=== PATIENT | female | born 1960 | race Caucasian/White ===

== ENCOUNTER 2017-12-30 18:47 | Emergency (ER) | payer OTHER ==
[~2017-12-30] VITALS: Ht 157.5 cm; Wt 118.8 kg
[~2017-12-30 18:47] MED LIST: ADV250/50; DEPAKOTE500 MG PO; HCTZ/LISINOPRIL1 TA1 PO; INVEGA9 MG PO; LOPRESSOR50 MG PO; METFORMIN ER500 M1 PO
[2017-12-30 18:53] VITALS: Ht 157.5 cm; Wt 118.8 kg
[2017-12-30 22:48] VITALS: BP 148/97
== END 2017-12-30 23:24 | disposition home or self-care (01) ==
LOC: ED 18:47
DX: J02.9 Acute pharyngitis, unspecified (principal); J98.01 Acute bronchospasm; I10 Essential (primary) hypertension; E11.9 Type 2 diabetes mellitus without complications; F31.9 Bipolar disorder, unspecified; E78.00 Pure hypercholesterolemia, unspecified; E66.01 Morbid (severe) obesity due to excess calories; K21.9 Gastro-esophageal reflux disease without esophagitis; M19.90 Unspecified osteoarthritis, unspecified site; Z88.0 Allergy status to penicillin; Z88.2 Allergy status to sulfonamides; Z88.8 Allergy status to other drugs, medicaments and biological substances
CPT/HCPCS: 82962; 87804; J2930; J7613; J7644

== ENCOUNTER 2018-04-04 08:17 | Emergency (ER) | payer OTHER ==
[~2018-04-04] VITALS: Ht 165.1 cm; Wt 116.1 kg
[2018-04-04 08:24] VITALS: Ht 165.1 cm; Wt 116.1 kg
[2018-04-04 08:54] VITALS: BP 157/92
== END 2018-04-04 08:54 | disposition home or self-care (01) ==
LOC: ED 08:17
DX: K59.00 Constipation, unspecified (principal); E11.9 Type 2 diabetes mellitus without complications; J45.909 Unspecified asthma, uncomplicated; I10 Essential (primary) hypertension; K21.9 Gastro-esophageal reflux disease without esophagitis; Z90.710 Acquired absence of both cervix and uterus; Z88.0 Allergy status to penicillin; Z88.2 Allergy status to sulfonamides; Z88.8 Allergy status to other drugs, medicaments and biological substances

== ENCOUNTER 2018-08-12 14:34 | Inpatient (IN) | payer OTHER ==
[~2018-08-12] VITALS: Ht 157.5 cm; Wt 117.0 kg
[~2018-08-12 14:34] MED LIST changes: +LOPRESSOR50 M1 PO; -LOPRESSOR50 MG PO
[2018-08-12 14:56] VITALS: Ht 157.5 cm; Wt 117.0 kg
[2018-08-12 15:28] LABS: BASOPHIL % 0.1 % (0-2); PLATELET COUNT 246 x10^3mcL (130-400)
[2018-08-12 15:34] LABS: RED CELL DISTRIBUTION WIDTH 15.3 % (11.5-14.5)
[2018-08-12 15:36] LABS: CALCIUM 8.4 mg/dL (8.5-10.1); CHLORIDE SERUM 107 mmol/L (98-107); GFR1 > 60 mL/min; GLUCOSE SERUM 122 mg/dL (74-106); POTASSIUM SERUM 3.8 mmol/L (3.5-5.1); SODIUM SERUM 141 mmol/L (136-145)
[2018-08-12 15:52] LABS: ALKALINE PHOSPHATASE 63 U/L (46-116); ALT/SGPT 12 U/L (14-59); AST/SGOT 10 U/L (15-37); BILIRUBIN TOTAL 0.34 mg/dL (0.20-1.00); CHOLESTEROL 139 mg/dL (<200); HDL CHOLESTEROL 50 mg/dL (40-60); TOTAL PROTEIN, SERUM 7.2 g/dL (6.4-8.2)
[2018-08-12 16:03] LABS: ALBUMIN 2.8 g/dL (3.4-5.0)
[2018-08-12 16:58] LABS: MAGNESIUM 1.9 mg/dL (1.8-2.4); PHOSPHOROUS 4.2 mg/dL (2.5-4.9)
[2018-08-12 17:05] LABS: T3 TOTAL 1.13 ng/mL
[2018-08-12 17:18] LABS: FREE T4 0.99 ng/dL (0.76-1.46); FREE THYROXINE INDEX 2.8 ug/dL (1.4-4.5); T4(THYROXINE) 8.5 ug/dL (4.7-13.3)
[2018-08-12 17:31] VITALS: BP 160/90
[2018-08-12 18:02] VITALS: BP 160/90
[2018-08-12 18:45] VITALS: BP 147/91
[2018-08-12 20:35] VITALS: BP 138/72
[2018-08-13 05:26] VITALS: BP 152/78
[2018-08-13 06:27] LABS: UA SPECIFIC GRAVITY 1.025 (1.005-1.035); microscopic required? YES; urine erythrocyte NEGATIVE (NEGATIVE)
[2018-08-13 06:47] LABS: PLATELET COUNT 228 x10^3mcL (130-400)
[2018-08-13 07:14] LABS: CALCIUM 8.1 mg/dL (8.5-10.1); CARBON DIOXIDE 30.9 mmol/L (21-32); CHLORIDE SERUM 109 mmol/L (98-107); CREATININE SERUM 0.8 mg/dL (0.6-1.0); GFR1 > 60 mL/min; GLUCOSE SERUM 170 mg/dL (74-106); MAGNESIUM 2.1 mg/dL (1.8-2.4); PHOSPHOROUS 3.7 mg/dL (2.5-4.9); RED CELL DISTRIBUTION WIDTH 15.8 % (11.5-14.5); SODIUM SERUM 143 mmol/L (136-145)
[2018-08-13 08:27] VITALS: BP 166/84
[2018-08-13 09:18] LABS: AMPHETAMINE QUAL UR NONE DETECTED (See below)
[2018-08-13 11:26] VITALS: BP 152/70
[2018-08-13 13:37] LABS: BAND NEUTROPHIL 7 % (0-10); BASOPHIL 0 % (0-2); MONOCYTE 8 % (0-7); SEGMENTED NEUTROPHILS 85 % (37-75); rbc morphology (normal/abnorm) ABNORMAL (NORMAL)
[2018-08-13 13:38] LABS: PLATELET MORPHOLOGY PLATELETS DECREASED
[2018-08-13 16:19] VITALS: BP 141/68
[2018-08-13 20:17] VITALS: BP 150/74
[2018-08-14 05:21] VITALS: BP 129/56
[2018-08-14 05:52] LABS: PLATELET COUNT 242 x10^3mcL (130-400)
[2018-08-14 06:15] LABS: CALCIUM 8.3 mg/dL (8.5-10.1); CARBON DIOXIDE 30.8 mmol/L (21-32); CHLORIDE SERUM 107 mmol/L (98-107); CREATININE SERUM 0.8 mg/dL (0.6-1.0); GFR1 > 60 mL/min; GLUCOSE SERUM 169 mg/dL (74-106); MAGNESIUM 2.1 mg/dL (1.8-2.4); PHOSPHOROUS 4.1 mg/dL (2.5-4.9); POTASSIUM SERUM 4.5 mmol/L (3.5-5.1); SODIUM SERUM 144 mmol/L (136-145)
[2018-08-14 06:32] LABS: RED CELL DISTRIBUTION WIDTH 15.5 % (11.5-14.5)
[2018-08-14 08:21] VITALS: BP 151/72
[2018-08-14 09:34] LABS: ATYPICAL LYMPH 1 %; BAND NEUTROPHIL 0 % (0-10); BASOPHIL 0 % (0-2); MONOCYTE 5 % (0-7); SEGMENTED NEUTROPHILS 92 % (37-75)
[2018-08-14 09:37] LABS: PLATELET MORPHOLOGY PLATELETS DECREASED
[2018-08-14 09:38] LABS: rbc morphology (normal/abnorm) ABNORMAL (NORMAL)
[2018-08-14 16:41] VITALS: BP 160/72
[2018-08-14 20:44] VITALS: BP 147/69
[2018-08-15 05:55] VITALS: BP 115/64
[2018-08-15 06:07] LABS: PLATELET COUNT 225 x10^3mcL (130-400)
[2018-08-15 06:54] LABS: CARBON DIOXIDE 31.5 mmol/L (21-32); CHLORIDE SERUM 103 mmol/L (98-107); CREATININE SERUM 0.7 mg/dL (0.6-1.0); GFR1 > 60 mL/min; GLUCOSE SERUM 160 mg/dL (74-106); POTASSIUM SERUM 4.2 mmol/L (3.5-5.1); SODIUM SERUM 140 mmol/L (136-145)
[2018-08-15 07:01] LABS: BASOPHIL % 0 % (0-2); RED CELL DISTRIBUTION WIDTH 15.5 % (11.5-14.5)
[2018-08-15 08:45] VITALS: BP 127/70
[2018-08-15 17:17] VITALS: BP 141/72
[2018-08-15 21:02] VITALS: BP 143/62
[2018-08-16 05:42] VITALS: BP 152/77
[2018-08-16 06:01] LABS: PLATELET COUNT 222 x10^3mcL (130-400)
[2018-08-16 06:07] LABS: CALCIUM 8.5 mg/dL (8.5-10.1); CARBON DIOXIDE 34.1 mmol/L (21-32); CHLORIDE SERUM 107 mmol/L (98-107); CREATININE SERUM 0.7 mg/dL (0.6-1.0); GFR1 > 60 mL/min; GLUCOSE SERUM 152 mg/dL (74-106); POTASSIUM SERUM 4.1 mmol/L (3.5-5.1); SODIUM SERUM 147 mmol/L (136-145)
[2018-08-16 06:23] LABS: BASOPHIL % 0 % (0-2); RED CELL DISTRIBUTION WIDTH 15.1 % (11.5-14.5)
[2018-08-16 09:50] VITALS: BP 151/86
[2018-08-16 17:56] VITALS: BP 168/80
[2018-08-16 20:53] VITALS: BP 137/70
[2018-08-17 05:29] VITALS: BP 126/76
[2018-08-17 06:20] LABS: CALCIUM 8.8 mg/dL (8.5-10.1); CARBON DIOXIDE 37.2 mmol/L (21-32); CHLORIDE SERUM 100 mmol/L (98-107); CREATININE SERUM 0.7 mg/dL (0.6-1.0); GFR1 > 60 mL/min; GLUCOSE SERUM 157 mg/dL (74-106); POTASSIUM SERUM 4.4 mmol/L (3.5-5.1); SODIUM SERUM 142 mmol/L (136-145)
[2018-08-17 06:27] LABS: PLATELET COUNT 221 x10^3mcL (130-400)
[2018-08-17 06:41] LABS: RED CELL DISTRIBUTION WIDTH 15.6 % (11.5-14.5)
[2018-08-17 08:30] VITALS: BP 162/83
[2018-08-17 12:20] LABS: BAND NEUTROPHIL 1 % (0-10); BASOPHIL 0 % (0-2); MONOCYTE 15 % (0-7); SEGMENTED NEUTROPHILS 81 % (37-75)
[2018-08-17 12:21] LABS: PLATELET MORPHOLOGY PLATELETS DECREASED; rbc morphology (normal/abnorm) ABNORMAL (NORMAL)
[2018-08-17] MEDS ORDERED: LEVOFLOXACIN750 M1 PO (13:45)
[2018-08-17] MEDS ORDERED: PREDNISONE10 MG PO (13:46)
[2018-08-17] MEDS ORDERED: PREDNISONE20 MG PO (13:46)
[2018-08-17] MEDS ORDERED: PRE20 PO (13:46)
[2018-08-17] MEDS ORDERED: VENTOLIN H0.09 MG/A1 INH (13:47)
[2018-08-17 13:59] VITALS: BP 162/83
== END 2018-08-17 15:00 | DRG 871 ==
LOC: ED 14:34 → MU 16:24
PROVIDERS: Emergency Medicine; Family Medicine; Internal Medicine
DX: A41.9 Sepsis, unspecified organism (principal); J18.9 Pneumonia, unspecified organism; J96.01 Acute respiratory failure with hypoxia; N17.0 Acute kidney failure with tubular necrosis; J45.901 Unspecified asthma with (acute) exacerbation; Z68.42 Body mass index [BMI] 45.0-49.9, adult; E44.0 Moderate protein-calorie malnutrition; E11.65 Type 2 diabetes mellitus with hyperglycemia; R80.9 Proteinuria, unspecified; F20.9 Schizophrenia, unspecified; E03.9 Hypothyroidism, unspecified; E66.9 Obesity, unspecified; I10 Essential (primary) hypertension; Z79.84 Long term (current) use of oral hypoglycemic drugs
CPT/HCPCS: 82962; 83880; 84439; 87804; 94150; J1956; J2920; J2930; J7030; J7613; J7620; J7626; J7644; Q0092

== ENCOUNTER 2019-02-11 08:09 | Emergency (ER) | payer OTHER ==
[~2019-02-11] VITALS: Ht 157.5 cm; Wt 116.1 kg
[~2019-02-11 08:09] MED LIST changes: +LEVOFLOXACIN750 M1 PO; +PRE20 PO; +PREDNISONE10 MG PO; +PREDNISONE20 MG PO; +VENTOLIN H0.09 MG/A1 INH
[2019-02-11 08:29] VITALS: Ht 157.5 cm; Wt 116.1 kg
[2019-02-11 11:04] VITALS: BP 136/70
== END 2019-02-11 11:03 | disposition home or self-care (01) ==
LOC: ED 08:09
DX: M25.551 Pain in right hip (principal); J45.909 Unspecified asthma, uncomplicated; I10 Essential (primary) hypertension; E11.9 Type 2 diabetes mellitus without complications; F31.9 Bipolar disorder, unspecified; K21.9 Gastro-esophageal reflux disease without esophagitis; M19.90 Unspecified osteoarthritis, unspecified site; Z90.710 Acquired absence of both cervix and uterus; Z88.0 Allergy status to penicillin; Z88.2 Allergy status to sulfonamides; Z88.8 Allergy status to other drugs, medicaments and biological substances
CPT/HCPCS: J1885

== ENCOUNTER 2019-07-31 12:53 | Inpatient (IN) | payer OTHER ==
[~2019-07-31] VITALS: Ht 157.5 cm; Wt 116.7 kg
[~2019-07-31 12:53] MED LIST changes: +INVEGA3 MG PO; -INVEGA9 MG PO
[2019-07-31 14:00] LABS: PLATELET COUNT 199 x10^3mcL (130-400)
[2019-07-31 14:02] LABS: RED CELL DISTRIBUTION WIDTH 15.2 % (11.5-14.5)
[2019-07-31 14:24] LABS: BAND NEUTROPHIL 68 % (0-10); BASOPHIL 0 % (0-2); MONOCYTE 8 % (0-7); SEGMENTED NEUTROPHILS 15 % (37-75)
[2019-07-31 14:25] LABS: rbc morphology (normal/abnorm) ABNORMAL (NORMAL)
[2019-07-31 14:38] LABS: UA SPECIFIC GRAVITY >=1.030 (1.005-1.035); microscopic required? YES; urine erythrocyte 1+ (NEGATIVE)
[2019-07-31 14:45] LABS: CALCIUM 8.1 mg/dL (8.5-10.1); CARBON DIOXIDE 30.2 mmol/L (21-32); CHLORIDE SERUM 101 mmol/L (98-107); GFR1 > 60 mL/min; GLUCOSE SERUM 129 mg/dL (74-106)
[2019-07-31 14:53] LABS: ALKALINE PHOSPHATASE 48 U/L (46-116); ALT/SGPT 17 U/L (14-59); AST/SGOT 23 U/L (15-37); BILIRUBIN TOTAL 0.36 mg/dL (0.20-1.00); CHOLESTEROL 141 mg/dL (<200); HDL CHOLESTEROL 42 mg/dL (40-60); TOTAL PROTEIN, SERUM 6.8 g/dL (6.4-8.2)
[2019-07-31 15:09] LABS: ALBUMIN 2.3 g/dL (3.4-5.0)
[2019-07-31 15:25] LABS: POTASSIUM SERUM 3.6 mmol/L (3.5-5.1); SODIUM SERUM 138 mmol/L (136-145)
[2019-07-31 16:14] VITALS: BP 139/73
[2019-07-31 16:37] LABS: AMPHETAMINE QUAL UR NONE DETECTED (See below)
[2019-07-31 21:27] VITALS: BP 108/65
[2019-08-01 06:00] VITALS: BP 113/68
[2019-08-01 06:06] LABS: CALCIUM 8.4 mg/dL (8.5-10.1); CARBON DIOXIDE 31.1 mmol/L (21-32); CHLORIDE SERUM 103 mmol/L (98-107); CREATININE SERUM 0.9 mg/dL (0.6-1.0); GFR1 > 60 mL/min; GLUCOSE SERUM 184 mg/dL (74-106); POTASSIUM SERUM 4.5 mmol/L (3.5-5.1); SODIUM SERUM 141 mmol/L (136-145)
[2019-08-01 06:11] LABS: PLATELET COUNT 189 x10^3mcL (130-400)
[2019-08-01 06:16] LABS: BASOPHIL % 0 % (0-2); RED CELL DISTRIBUTION WIDTH 15.4 % (11.5-14.5)
[2019-08-01] MEDS ORDERED: DEPAKOTE ER500 MG PO (07:30)
[2019-08-01] MEDS ORDERED: DEPAKOTE500 MG PO (08:27)
[2019-08-01 08:58] VITALS: BP 122/63
[2019-08-01 12:34] VITALS: BP 118/62
[2019-08-01 16:48] VITALS: BP 128/66
[2019-08-01 21:00] VITALS: BP 121/61
[2019-08-02 05:01] VITALS: BP 148/54
[2019-08-02 06:20] LABS: CALCIUM 9.1 mg/dL (8.5-10.1); CARBON DIOXIDE 31.2 mmol/L (21-32); CREATININE SERUM 1.1 mg/dL (0.6-1.0); POTASSIUM SERUM 4.6 mmol/L (3.5-5.1)
[2019-08-02 06:35] LABS: BASOPHIL % 0.1 % (0-2); PLATELET COUNT 275 x10^3mcL (130-400)
[2019-08-02 07:02] LABS: RED CELL DISTRIBUTION WIDTH 15.6 % (11.5-14.5)
[2019-08-02 07:33] VITALS: BP 148/58
[2019-08-02 11:30] VITALS: BP 150/84
[2019-08-02 12:26] VITALS: BP 150/84
[2019-08-02 13:17] VITALS: BP 150/84
[2019-08-02 14:09] LABS: BAND NEUTROPHIL 2 % (0-10); BASOPHIL 0 % (0-2); MONOCYTE 2 % (0-7); SEGMENTED NEUTROPHILS 94 % (37-75); rbc morphology (normal/abnorm) ABNORMAL (NORMAL)
[2019-08-02 14:10] LABS: PLATELET MORPHOLOGY PLATELETS NORMAL
== END 2019-08-02 13:54 | disposition home or self-care (01) | DRG 203 ==
LOC: ED 12:53 → DU 14:38
PROVIDERS: Emergency Medicine; Internal Medicine; ADMIT Internal Medicine Pulmonary Disease
DX: J45.901 Unspecified asthma with (acute) exacerbation (principal); E11.9 Type 2 diabetes mellitus without complications; I10 Essential (primary) hypertension; R11.0 Nausea; R32 Unspecified urinary incontinence; M19.90 Unspecified osteoarthritis, unspecified site; F31.9 Bipolar disorder, unspecified; Z88.0 Allergy status to penicillin; Z88.2 Allergy status to sulfonamides; Z88.8 Allergy status to other drugs, medicaments and biological substances
CPT/HCPCS: 36600; 82962; 97116-GP; G0378; J0456; J1956; J2920; J2930; J7030; J7613; J7620; J7626; J7644; Q0092